=== PATIENT | male | born 1995 | race Caucasian/White ===

== ENCOUNTER 2017-07-07 15:56 | Emergency (ER) | payer MEDICAID ==
[~2017-07-07] VITALS: Ht 177.8 cm; Wt 81.6 kg
[~2017-07-07 15:56] MED LIST: ALBUTEROL-200 PUFFS/ IH; LORATADINE 10MG10 M1 PO; TAMIFLU 75MG CA75 MG PO; VENTOLIN H0.09 MG/Ac; ZYRTEC 10MG TAB10 MG PO
--- NOTE | 2017-07-07 17:00 | Urgent Treatment Center Report ---
History of Present Issue Date/Time Seen by Provider 07/07/17 1769 Visit Reason Pt arrived:Walked Presenting Problem:PT STATES RIGHT SIDE JAW PAIN X3 DAYS. PT STATES GETTING WISDOM TEETH TAKEN OUT X1 MONTH AGO. Location if Accident: Onset of symptoms date/time:/ or onset unknown for:MEDICAL HX UNKNOWN Have you (or family members/close friends) recently traveled outside the [place]? N If Yes, where/when: Have you had exposure to infectious disease within the past month? TB? Other? Specify: Patient state that he recently had his wisdom tooth removed on the right lower jaw State that he was on antibiotics and finished them last week. State that he began to notice that he was having some pain and swelling in his right lower jaw area again and tastes infection in his mouth. Today his right jaw area is swollen and more tender so he came in to get checked out ALLERGIES Coded Allergies: Penicillins (07/07/17) Home Medications Reported Medications Loratadine (Loratadine 10MG Tablet) 10 MG PO DAILYP PRN ALLERGIES Albuterol (Albuterol-Hfa Inhaler) 2 PUFF IH BID History Medical History General CAD? No Angina: No IN: No Hypertension? No Hyperlipidemia? No CHF? No DVT? No PE? No COPD? No Asthma? Yes Anemia? No GERD? No Gastric ulcers? No GI Bleed? No Hernia? No Thyroid Problems? No Hypothyroidism? No CVA? No Seizures? No Diabetes? No Renal Insuffiency? No UTI? No Stones? No BPH? No GB Disease: No Nephritic Syndrome? No Asplenia? No Hepatitis? No Sickle Cell Disease? No Arthritis? No Migraines? No Cataracts? No Glaucoma? No MRSA? No HIV? No TB? No Anxiety? No Depression? No Cancer? No More? No Immunization HX DT/Tetanus 1-4 YRS Surgical Hx Previous Surgery?Y BILATERAL INGUINAL HERNIA T&A WISDOM TEETH Social History Smoking Hx Smoker: Never Smoker Tobacco: No Packs/day < 1 Pack Alcohol Alcohol: No Review of Systems All Other Systems Reviewed and Negative Comment Swelling and pain in right jaw area after having dental surgery done around 2-3 weeks ago Physical Exam Vital Signs Vital Signs Date Time Temp Pulse Resp B/P Pulse O2 O2 Flow FiO2 Ox Delivery Rate 07/07 1632 98.6 81 20 123/61 98 General Appearance normal appearance, WD/WN, no apparent distress Ear, Nose, Throat Swelling in right jaw area, gums on right lower swollen and red appears like dental abcess Respiratory Status Yes: trachea midline, chest symmetrical, non tender chest. No: respiratory distress. 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 No Progress [facility] Progress Notes Comment Spoke with [facility] Pharmacist to see if there was any other medication that patient could take for dental abcess due to recently taking Clindamycin and allergy to Penicillin Departure Departure Time of Disposition 1728 Disposition DC Home or Self Care(routine) Clinical Impression Primary Impression: Dental abscess Condition STABLE Referrals Peter RODRIGES,Dano (Family): 3 Days-Call Office Patient Instructions Tooth Abscess Additional Instructions Follow up with dentist Take medication as prescribed Warm compressess to jaw will help with swelling and pain Over the counter Motrin and Tylenol as needed for pain and fever Make sure to eat Yogurt and take probiotic with this medication to help with stomach upset Call Dentist tomorrow that removed the tooth and make appointment to get in to see them THANIA Discharge Counseling Counseled pt/family regarding diagnosis, medications/RX, home care, follow up needs Prescriptions Current Visit Scripts Clindamycin Hcl (Clindamycin 300MG) 300 MG PO QID #40 CAP at 1802
--- NOTE | 2017-07-07 17:00 | Urgent Treatment Center Report ---
History of Present Issue Date/Time Seen by Provider 07/07/17 1829 Visit Reason Pt arrived:Walked Presenting Problem:PT STATES RIGHT SIDE JAW PAIN X3 DAYS. PT STATES GETTING WISDOM TEETH TAKEN OUT X1 MONTH AGO. Location if Accident: Onset of symptoms date/time:/ or onset unknown for:MEDICAL HX UNKNOWN Have you (or family members/close friends) recently traveled outside the [place]? N If Yes, where/when: Have you had exposure to infectious disease within the past month? TB? Other? Specify: Patient state that he recently had his wisdom tooth removed on the right lower jaw State that he was on antibiotics and finished them last week. State that he began to notice that he was having some pain and swelling in his right lower jaw area again and tastes infection in his mouth. Today his right jaw area is swollen and more tender so he came in to get checked out ALLERGIES Coded Allergies: Penicillins (07/07/17) Home Medications Reported Medications Loratadine (Loratadine 10MG Tablet) 10 MG PO DAILYP PRN ALLERGIES Albuterol (Albuterol-Hfa Inhaler) 2 PUFF IH BID History Medical History General CAD? No Angina: No GA: No Hypertension? No Hyperlipidemia? No CHF? No DVT? No PE? No COPD? No Asthma? Yes Anemia? No GERD? No Gastric ulcers? No GI Bleed? No Hernia? No Thyroid Problems? No Hypothyroidism? No CVA? No Seizures? No Diabetes? No Renal Insuffiency? No UTI? No Stones? No BPH? No GB Disease: No Nephritic Syndrome? No Asplenia? No Hepatitis? No Sickle Cell Disease? No Arthritis? No Migraines? No Cataracts? No Glaucoma? No MRSA? No HIV? No TB? No Anxiety? No Depression? No Cancer? No More? No Immunization HX DT/Tetanus 1-4 YRS Surgical Hx Previous Surgery?Y BILATERAL INGUINAL HERNIA T&A WISDOM TEETH Social History Smoking Hx Smoker: Never Smoker Tobacco: No Packs/day < 1 Pack Alcohol Alcohol: No Review of Systems All Other Systems Reviewed and Negative Comment Swelling and pain in right jaw area after having dental surgery done around 2-3 weeks ago Physical Exam Vital Signs Vital Signs Date Time Temp Pulse Resp B/P Pulse O2 O2 Flow FiO2 Ox Delivery Rate 07/07 1632 98.6 81 20 123/61 98 General Appearance normal appearance, WD/WN, no apparent distress Ear, Nose, Throat Swelling in right jaw area, gums on right lower swollen and red appears like dental abcess Respiratory Status Yes: trachea midline, chest symmetrical, non tender chest. No: respiratory distress. 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 No Progress [facility] Progress Notes Comment Spoke with Ezekiel Pharmacist to see if there was any other medication that patient could take for dental abcess due to recently taking Clindamycin and allergy to Penicillin Departure Departure Time of Disposition 1728 Disposition DC Home or Self Care(routine) Clinical Impression Primary Impression: Dental abscess Condition STABLE Referrals Peter RODRIGES,Dano (Family): 3 Days-Call Office Patient Instructions Tooth Abscess Additional Instructions Follow up with dentist Take medication as prescribed Warm compressess to jaw will help with swelling and pain Over the counter Motrin and Tylenol as needed for pain and fever Make sure to eat Yogurt and take probiotic with this medication to help with stomach upset Call Dentist tomorrow that removed the tooth and make appointment to get in to see them THANIA Discharge Counseling Counseled pt/family regarding diagnosis, medications/RX, home care, follow up needs Prescriptions Current Visit Scripts Clindamycin Hcl (Clindamycin 300MG) 300 MG PO QID #40 CAP at 1802
[2017-07-07] MEDS ORDERED: CLINDAMYCIN HC300 MG PO (18:01)
[2017-07-07 18:05] VITALS: BP 123/61
== END 2017-07-07 18:05 | disposition home or self-care (01) ==
LOC: UTC 15:56
DX: K04.7 Periapical abscess without sinus (principal); Z88.0 Allergy status to penicillin; J45.909 Unspecified asthma, uncomplicated